=== PATIENT | male | born 1955 ===

== ENCOUNTER 2018-10-11 14:07 | Inpatient (IN) | payer OTHER ==
[~2018-10-11] VITALS: Ht 170.2 cm; Wt 81.6 kg
== END 2018-10-14 09:26 | disposition home or self-care (01) | DRG 708 ==
LOC: O/R 10-12 06:06 → SURH 10-12 07:00 → SURG 10-12 13:39 → CIR.AMB 10-12 14:50 → EDSTATUS 10-12 15:38 → SURH 10-12 15:42 → SURG 10-14 09:26
PROVIDERS: ADMIT Urology
PROC: 0VT30ZZ Resection of Bilateral Seminal Vesicles, Open Approach (ICD-10-PCS; 2018-10-12)
PROC: 07TC0ZZ Resection of Pelvis Lymphatic, Open Approach (ICD-10-PCS; principal; 2018-10-12 07:00)
DX: C61 Malignant neoplasm of prostate (principal)

== ENCOUNTER 2019-06-20 06:48 | Outpatient (CLI) | payer OTHER | END 2019-06-20 15:08 | disposition home or self-care (01) | LOC: LAB 06:48 | DX: C61 Malignant neoplasm of prostate (principal) ==